=== PATIENT | female | born 1960 | race Caucasian/White ===

== ENCOUNTER 2019-04-12 15:09 | Observation (INO) ==
--- NOTE | 2019-04-12 15:30 | Emergency Department Note ---
Disposition Clinical Impression: Chest pain Qualifiers: Chest pain type: unspecified Qualified Code(s): R07.9 - Chest pain, unspecified Abdominal pain Qualifiers: Abdominal location: generalized Qualified Code(s): R10.84 - Generalized abdominal pain Disposition: Admitted As Inpatient Condition: Good Time of Disposition: 17:00 General Adult HPI - General Chief complaint: ED Chest Pain Stated complaint: Chest / ABD Pain Time Seen by Provider: 04/12/19 15:30 Source: patient Mode of arrival: ambulatory Limitations: no limitations Nursing Notes Reviewed: Yes Vital Signs Reviewed: Yes - History of Present Illness HPI Narrative: Patient is a 62-year-old female with a past medical history of urolithiasis and hysterectomy presents to the ED for evaluation of chest and abdominal pain. Patient states her chest pain began approximately 2 months ago and started on initially as a substernal sharp stabbing pain with cold fluids and is over time progressed into a constant diffuse chest pain that she describes as sharp and stabbing and constant with no alleviating or relieving factors. She denies any associated fevers, nausea, dyspnea, or urinary symptoms. States she has had loose stools but no blood present. She states she had a urine performed by her PCP that did show "blood" that she was started on a course of Bactrim antibiotic which she finished yesterday completed a seven-day course. States that her family doctor has been evaluating her for her chest pain in the next at this referral to a records analysis manager to be evaluated for fibromyalgia. She has had no recent travels, not on control, no lower extremity pain or swelling. When asked about blood clots is patient states that she has had a blood clot in her lungs however her daughter states that she actually had a pleural effusion which may have been blood that she has never been on anticoagulation. Pain Scale: 5 - Related Data Home Medications Medication Instructions Recorded Confirmed Cyanocobalamin (B-12) [Vitamin B12] 1,000 mcg IM TH 04/13/19 04/14/19 Ergocalciferol (VITAMIN D2) 50,000 unit PO TH 04/13/19 04/14/19 [Vitamin D2] Levothyroxine [Synthroid] 100 mcg PO 0630 04/13/19 04/14/19 Tramadol HCl [Ultram] 50 mg PO Q6H PRN 04/13/19 04/14/19 Pantoprazole Sodium 40 mg PO DAILY 04/14/19 04/14/19 Previous Rx's Medication Instructions Recorded Nitrofurantoin (BID) [Macrobid] 100 mg PO BIDWM #10 capsule 04/14/19 Vancomycin Oral Soln [Firvanq] 125 mg PO QID #100 ml 04/14/19 Allergies Allergy/AdvReac Type Severity Reaction Status Date / Time codeine AdvReac Nausea Verified 04/14/19 12:19 Past Medical History - Past Medical History Attestation: Yes The following information was validated with the patient. Medical history: Reports: kidney stones Surgical history: Reports: cholecystectomy, hysterectomy, ureteral stent Psychiatric history: Reports: no psych history - Social History Smoking Status: Never smoker Smokeless Tobacco Status: No Alcohol use: Reports: none Drug use: Reports: none Physical Exam CONSTITUTIONAL: Well-appearing; well-nourished; A&O X 3, in no apparent distress HEAD: Normocephalic; atraumatic EYES: PERRL, no scleral icterus NOSE: The nose is normal in appearance without rhinorrhea NECK: No JVD or distended neck veins RESP: Normal chest excursion with respiration; breath sounds clear and equal bilaterally; no wheezes, rhonchi, or rales CARD: Regular rhythm, without murmurs, rub or gallop ABD: Non-distended; non-tender, soft, without rigidity, rebound or guarding,no pulsatile mass CHEST: No pain with palpation SKIN: Normal for age and race; warm and dry without diaphoresis ; no apparent lesions EXTREMITIES: Pulses are 2 plus and equal times 4 extremities, no peripheral edema or calf muscle pain Course Course Narrative: Patient's heart score at this time is 2. She will undergo evaluation for chest pain with EKG as well as troponin, she also undergo evaluation of her abdominal pain with a CAT scan as well as labs evaluating her liver function and pancreas. I low suspicion that this is ACS chest pain given has been going on for over 2 months given the characteristics present. I am unable to use PERC to r/o PE/DVT due to patient tachycardia on arrival. She will undergo evaluation with d-dimer. Vital Signs Temperature 98.8 F 04/12/19 15:16 Pulse Rate 102 04/12/19 15:16 Respiratory Rate 18 04/12/19 15:16 Blood Pressure 140/77 04/12/19 15:16 O2 Sat by Pulse Oximetry 95 04/12/19 15:16 Temperature 98.3 F 04/14/19 15:04 Pulse Rate 77 04/14/19 15:04 Respiratory Rate 16 04/14/19 15:04 Blood Pressure 100/66 04/14/19 15:04 O2 Sat by Pulse Oximetry 94 04/14/19 15:04 Oxygen Delivery Oxygen Delivery Room Air Medical Decision Making - Medical Records Medical records reviewed: Yes I reviewed the patient's medical records. - Lab Data Lab results reviewed: Yes I reviewed the patient's lab results. Result diagrams: 04/14/19 07:26 04/14/19 07:26 Lab Results 04/12/19 04/12/19 04/12/19 Range/Units 16:11 16:11 16:11 WBC 7.9 (4.3-11.1) K/mcL RBC 4.67 (3.82-4.97) M/mcL Hgb 14.5 (11.5-15.4) g/dL Hct 42.6 (35.3-44.9) % MCV 91.2 (83.0-100.0) fL MCH 31.0 (28.0-33.3) pg MCHC 34.0 (31.6-35.5) g/dL RDW 12.9 (11.5-14.5) % Plt Count 222 (140-400) K/mcL MPV 8.7 L (9.4-12.4) fL Immature Gran % 0.4 (0-4) % Seg Neutrophils % 73.9 % Lymphocytes % 14.9 % Monocytes % 9.9 % Eosinophils % 0.6 % Basophils % 0.3 % Neutrophils # 5.9 (1.6-8.9) K/mcL Lymphocytes # 1.2 (0.6-4.6) K/mcL Monocytes # 0.8 (0.0-1.3) K/mcL Eosinophils # 0.1 (0.0-0.6) K/mcL Basophils # 0.0 (0.0-0.2) K/mcL PT 12.7 H (9.4-12.1) Seconds INR 1.1 D-Dimer 364 (0-500) ng/mLFEU Sodium 136 (136-145) mEq/L Potassium 3.7 (3.5-5.1) mEq/L Chloride 102 (98-107) mEq/L Carbon Dioxide 26 (23-29) mEq/L BUN 13 (6-20) mg/dL Creatinine 0.89 (0.60-1.20) mg/dL Est GFR ( Amer) > 60 (> 60) Est GFR (Non-Af Amer) > 60 (> 60) BUN/Creatinine Ratio 15 (6-26) Glucose 101 (70-105) mg/dL Calculated Osmolality 282 (280-300) Calcium 9.5 (8.6-10.3) mg/dL Magnesium (1.6-2.6) mg/dL Total Bilirubin (0.3-1.0) mg/dL Direct Bilirubin (0.0-0.2) mg/dL Indirect Bilirubin (0.0-1.2) mg/dL AST (13-39) Units/L ALT (7-52) Units/L Alkaline Phosphatase (34-104) Units/L Troponin I < 0.03 (< 0.04) ng/mL Serum Total Protein (6.4-8.9) g/dL Albumin (3.5-5.7) g/dL Globulin (2.4-3.5) g/dL Albumin/Globulin Ratio (1.1-2.2) Lipase 16 (11-82) Units/L 04/12/19 Range/Units 16:11 WBC (4.3-11.1) K/mcL RBC (3.82-4.97) M/mcL Hgb (11.5-15.4) g/dL Hct (35.3-44.9) % MCV (83.0-100.0) fL MCH (28.0-33.3) pg MCHC (31.6-35.5) g/dL RDW (11.5-14.5) % Plt Count (140-400) K/mcL MPV (9.4-12.4) fL Immature Gran % (0-4) % Seg Neutrophils % % Lymphocytes % % Monocytes % % Eosinophils % % Basophils % % Neutrophils # (1.6-8.9) K/mcL Lymphocytes # (0.6-4.6) K/mcL Monocytes # (0.0-1.3) K/mcL Eosinophils # (0.0-0.6) K/mcL Basophils # (0.0-0.2) K/mcL PT (9.4-12.1) Seconds INR D-Dimer (0-500) ng/mLFEU Sodium (136-145) mEq/L Potassium (3.5-5.1) mEq/L Chloride (98-107) mEq/L Carbon Dioxide (23-29) mEq/L BUN (6-20) mg/dL Creatinine (0.60-1.20) mg/dL Est GFR ( Amer) (> 60) Est GFR (Non-Af Amer) (> 60) BUN/Creatinine Ratio (6-26) Glucose (70-105) mg/dL Calculated Osmolality (280-300) Calcium (8.6-10.3) mg/dL Magnesium 1.8 (1.6-2.6) mg/dL Total Bilirubin 0.9 (0.3-1.0) mg/dL Direct Bilirubin 0.1 (0.0-0.2) mg/dL Indirect Bilirubin 0.8 (0.0-1.2) mg/dL AST 11 L (13-39) Units/L ALT 11 (7-52) Units/L Alkaline Phosphatase 58 (34-104) Units/L Troponin I (< 0.04) ng/mL Serum Total Protein 7.7 (6.4-8.9) g/dL Albumin 4.3 (3.5-5.7) g/dL Globulin 3.4 (2.4-3.5) g/dL Albumin/Globulin Ratio 1.3 (1.1-2.2) Lipase (11-82) Units/L - Radiology Data Radiology results reviewed: Yes I reviewed the patient's radiology results. S.B.A.R. - S.B.A.R. Situation: Demographics, MOA Background: Presenting Complaint, Relevant PMH, Meds, & Allergies Assessment: Vital Signs, Course and respsone to treatment, Exam Concerns, Patient/Family Expectation, Pertinant Lab Results, Outstanding Labs Recommendation: Barrier(s) to disposition, Recommendation based on pending studies, treatments, or consults S.B.A.R. Report Given to: Anabella
--- NOTE | 2019-04-12 16:26 | Emergency Department Note ---
Disposition Clinical Impression: Abdominal pain Chest pain Qualifiers: Chest pain type: unspecified Qualified Code(s): R07.9 - Chest pain, unspecified Disposition: Still a Patient Condition: Good Referrals: Yanet Vazquez CNP [Primary Care Provider] - Forms: ED Satisfaction Letter Time of Disposition: 17:00 General Adult HPI - General Chief complaint: ED Chest Pain Stated complaint: Chest / ABD Pain Time Seen by Provider: 04/12/19 15:30 Source: patient Mode of arrival: ambulatory Limitations: no limitations - History of Present Illness Pain Scale: 5 - Related Data Home Medications Medication Instructions Recorded Confirmed Naproxen Sodium [Aleve] 220 - 440 mg PO AD PRN 12/28/15 12/28/15 Previous Rx's Medication Instructions Recorded HYDROcodone/Acet 5/325 mg [[place] 2 tab PO Q6HR PRN #25 tablet 12/29/15 5-325 mg] Oxybutynin [Ditropan] 5 mg PO TID PRN #30 tablet 12/29/15 Allergies Allergy/AdvReac Type Severity Reaction Status Date / Time codeine AdvReac Nausea Verified 04/12/19 15:17 Past Medical History - Past Medical History Medical history: Reports: kidney stones Surgical history: Reports: cholecystectomy, hysterectomy, ureteral stent Psychiatric history: Reports: no psych history - Social History Smoking Status: Never smoker Smokeless Tobacco Status: No Alcohol use: Reports: none Drug use: Reports: none Physical Exam - General Limitations: no limitations Course Vital Signs Temperature 98.8 F 04/12/19 15:16 Pulse Rate 102 04/12/19 15:16 Respiratory Rate 18 04/12/19 15:16 Blood Pressure 140/77 04/12/19 15:16 O2 Sat by Pulse Oximetry 95 04/12/19 15:16 Temperature 98.8 F 04/12/19 15:16 Pulse Rate 102 04/12/19 15:16 Respiratory Rate 18 04/12/19 15:16 Blood Pressure 140/77 04/12/19 15:16 O2 Sat by Pulse Oximetry 95 04/12/19 15:16 Oxygen Delivery Oxygen Delivery Room Air Attestation Statement - Attestation Attestation: I examined this patient and my medical decision-making was reviewed with the Resident Physician. I agree with the documented findings, disposition and nova tment plan as described except to the extent set forth below. Daily chest pain and abdominal pain for approximately 2 months. Has failed several therapeutic trials as an outpatient with her primary care provider. Presents to the emergency Department frustrated and hoping for diagnosis. There is a pleuritic component to her pain. She is over 16 is tachycardic. Clinical suspicion for pulmonary embolism is low, d-dimer ordered. She is low risk by well's criteria. HEART score isH0 E0 A1 R1 TP = 2. Anticipate discharge if diagnostic workup is negative. Patient checked out to Dr. Kyle at change of shift.
[2019-04-12 16:32] LABS: Basophils % 0.3 %; Eosinophils # 0.1 K/mcL (0.0-0.6); Eosinophils % 0.6 %; Hematocrit 42.6 % (35.3-44.9); Hemoglobin 14.5 g/dL (11.5-15.4); Immature Granulocytes % 0.4 % (0-4); Lymphocytes # 1.2 K/mcL (0.6-4.6); Lymphocytes % 14.9 %; Mean Corpuscular Volume 91.2 fL (83.0-100.0); Mean Platelet Volume 8.7 fL (9.4-12.4); Monocytes # 0.8 K/mcL (0.0-1.3); Monocytes % 9.9 %; Neutrophils # 5.9 K/mcL (1.6-8.9); Platelet Count 222 K/mcL (140-400); Red Blood Count 4.67 M/mcL (3.82-4.97); Red Cell Distribution Width 12.9 % (11.5-14.5); Segmented Neutrophils % 73.9 %; White Blood Count 7.9 K/mcL (4.3-11.1)
--- NOTE | 2019-04-12 16:34 | Emergency Department Note ---
Disposition Clinical Impression: Chest pain Qualifiers: Chest pain type: unspecified Qualified Code(s): R07.9 - Chest pain, unspecified Abdominal pain Qualifiers: Abdominal location: generalized Qualified Code(s): R10.84 - Generalized abdominal pain Disposition: Admitted As Inpatient Condition: Good Time of Disposition: 22:01 General Adult HPI - General Chief complaint: ED Chest Pain Stated complaint: Chest / ABD Pain Time Seen by Provider: 04/12/19 15:30 Source: patient Mode of arrival: ambulatory Limitations: no limitations - History of Present Illness Pain Scale: 5 - Related Data Home Medications Medication Instructions Recorded Confirmed Naproxen Sodium [Aleve] 220 - 440 mg PO AD PRN 12/28/15 12/28/15 Previous Rx's Medication Instructions Recorded HYDROcodone/Acet 5/325 mg [[place] 2 tab PO Q6HR PRN #25 tablet 12/29/15 5-325 mg] Oxybutynin [Ditropan] 5 mg PO TID PRN #30 tablet 12/29/15 Allergies Allergy/AdvReac Type Severity Reaction Status Date / Time codeine AdvReac Nausea Verified 04/12/19 15:17 Past Medical History - Past Medical History Medical history: Reports: kidney stones Surgical history: Reports: cholecystectomy, hysterectomy, ureteral stent Psychiatric history: Reports: no psych history - Social History Smoking Status: Never smoker Smokeless Tobacco Status: No Alcohol use: Reports: none Drug use: Reports: none Physical Exam - General Limitations: no limitations Course Vital Signs Temperature 98.8 F 04/12/19 15:16 Pulse Rate 102 04/12/19 15:16 Respiratory Rate 18 04/12/19 15:16 Blood Pressure 140/77 04/12/19 15:16 O2 Sat by Pulse Oximetry 95 04/12/19 15:16 Temperature 99.8 F H 04/12/19 21:37 Pulse Rate 81 04/12/19 21:37 Respiratory Rate 16 04/12/19 21:37 Blood Pressure 120/68 04/12/19 21:37 O2 Sat by Pulse Oximetry 96 04/12/19 21:37 Oxygen Delivery Oxygen Delivery Room Air Medical Decision Making - Lab Data Result diagrams: 04/12/19 16:11 04/12/19 16:11 Lab Results 04/12/19 04/12/19 04/12/19 Range/Units 16:11 16:11 16:11 WBC 7.9 (4.3-11.1) K/mcL RBC 4.67 (3.82-4.97) M/mcL Hgb 14.5 (11.5-15.4) g/dL Hct 42.6 (35.3-44.9) % MCV 91.2 (83.0-100.0) fL MCH 31.0 (28.0-33.3) pg MCHC 34.0 (31.6-35.5) g/dL RDW 12.9 (11.5-14.5) % Plt Count 222 (140-400) K/mcL MPV 8.7 L (9.4-12.4) fL Immature Gran % 0.4 (0-4) % Seg Neutrophils % 73.9 % Lymphocytes % 14.9 % Monocytes % 9.9 % Eosinophils % 0.6 % Basophils % 0.3 % Neutrophils # 5.9 (1.6-8.9) K/mcL Lymphocytes # 1.2 (0.6-4.6) K/mcL Monocytes # 0.8 (0.0-1.3) K/mcL Eosinophils # 0.1 (0.0-0.6) K/mcL Basophils # 0.0 (0.0-0.2) K/mcL PT 12.7 H (9.4-12.1) Seconds INR 1.1 D-Dimer 364 (0-500) ng/mLFEU Sodium 136 (136-145) mEq/L Potassium 3.7 (3.5-5.1) mEq/L Chloride 102 (98-107) mEq/L Carbon Dioxide 26 (23-29) mEq/L BUN 13 (6-20) mg/dL Creatinine 0.89 (0.60-1.20) mg/dL Est GFR ( Amer) > 60 (> 60) Est GFR (Non-Af Amer) > 60 (> 60) BUN/Creatinine Ratio 15 (6-26) Glucose 101 (70-105) mg/dL Calculated Osmolality 282 (280-300) Calcium 9.5 (8.6-10.3) mg/dL Magnesium (1.6-2.6) mg/dL Total Bilirubin (0.3-1.0) mg/dL Direct Bilirubin (0.0-0.2) mg/dL Indirect Bilirubin (0.0-1.2) mg/dL AST (13-39) Units/L ALT (7-52) Units/L Alkaline Phosphatase (34-104) Units/L Troponin I < 0.03 (< 0.04) ng/mL Serum Total Protein (6.4-8.9) g/dL Albumin (3.5-5.7) g/dL Globulin (2.4-3.5) g/dL Albumin/Globulin Ratio (1.1-2.2) Lipase 16 (11-82) Units/L // Range/Units 16:11 WBC (4.3-11.1) K/mcL RBC (3.82-4.97) M/mcL Hgb (11.5-15.4) g/dL Hct (35.3-44.9) % MCV (83.0-100.0) fL MCH (28.0-33.3) pg MCHC (31.6-35.5) g/dL RDW (11.5-14.5) % Plt Count (140-400) K/mcL MPV (9.4-12.4) fL Immature Gran % (0-4) % Seg Neutrophils % % Lymphocytes % % Monocytes % % Eosinophils % % Basophils % % Neutrophils # (1.6-8.9) K/mcL Lymphocytes # (0.6-4.6) K/mcL Monocytes # (0.0-1.3) K/mcL Eosinophils # (0.0-0.6) K/mcL Basophils # (0.0-0.2) K/mcL PT (9.4-12.1) Seconds INR D-Dimer (0-500) ng/mLFEU Sodium (136-145) mEq/L Potassium (3.5-5.1) mEq/L Chloride (98-107) mEq/L Carbon Dioxide (23-29) mEq/L BUN (6-20) mg/dL Creatinine (0.60-1.20) mg/dL Est GFR ( Amer) (> 60) Est GFR (Non-Af Amer) (> 60) BUN/Creatinine Ratio (6-26) Glucose (70-105) mg/dL Calculated Osmolality (280-300) Calcium (8.6-10.3) mg/dL Magnesium 1.8 (1.6-2.6) mg/dL Total Bilirubin 0.9 (0.3-1.0) mg/dL Direct Bilirubin 0.1 (0.0-0.2) mg/dL Indirect Bilirubin 0.8 (0.0-1.2) mg/dL AST 11 L (13-39) Units/L ALT 11 (7-52) Units/L Alkaline Phosphatase 58 (34-104) Units/L Troponin I (< 0.04) ng/mL Serum Total Protein 7.7 (6.4-8.9) g/dL Albumin 4.3 (3.5-5.7) g/dL Globulin 3.4 (2.4-3.5) g/dL Albumin/Globulin Ratio 1.3 (1.1-2.2) Lipase (11-82) Units/L Attestation Statement - Attestation Attestation: I saw and evaluated the patient and and reviewed the resident's note/PA note/CHECK WEIGHER note, and I agree with the findings and plan. I personally supervised and was present for the xiao/critical portions of any procedures. The medical decision- making was reviewed with the NETWORK MANAGEMENT SPECIALIST/PA/Advanced Practice Nurse/Resident Physician. I agree with the documented findings, disposition and treatment plan as described except to the extent set forth below. I did see the patient at bedside with Dr. akers and I did speak with her and she has had constant right-sided chest pain for the last 6 weeks without radiation, no associated diaphoresis or dyspnea. Was treated for reflux as well as for urinary tract infection without adequate improvement. She does not have history of cardiac disease. There is no pleuritic aspect. No pain or swelling of lower extremities. She does not have radiation and specifically no radiation to the back. Test results are pending. I did review the patient's EKG and there was one done at 3:13 PM and I did compare this to an EKG from 2013 and it does appear that there is some new inferior lateral ST depression so the patient will be admitted for further evaluation of possible ischemia. Test results including troponin testing are pending. I do not suspect pulmonary embolism. 1634 I did speak with the hospitalist who accepts the patient for admission. She is actually over getting a abdominal pelvic CAT scan which was ordered by the previous team prior to and off so we will make sure that is okay but on my assessment the primary location of pain was right chest and with the new ischemic EKG changes this should be a cardiac evaluation. I will follow the results of the CT 1741
[2019-04-12] MEDS ORDERED: Aspirin 325 MG TABLET PO ONE (16:35)
[2019-04-12 16:57] LABS: Albumin 4.3 g/dL (3.5-5.7); Albumin/Globulin Ratio 1.3 (1.1-2.2); Bilirubin,Direct 0.1 mg/dL (0.0-0.2); Bilirubin,Indirect 0.8 mg/dL (0.0-1.2); Bilirubin,Total 0.9 mg/dL (0.3-1.0); Globulin 3.4 g/dL (2.4-3.5); Total Protein 7.7 g/dL (6.4-8.9)
[2019-04-12 16:58] LABS: BUN/Creatinine Ratio 15 (6-26); Blood Urea Nitrogen 13 mg/dL (6-20); Calcium 9.5 mg/dL (8.6-10.3); Carbon Dioxide 26 mEq/L (23-29); Chloride 102 mEq/L (98-107); Glucose 101 mg/dL (70-105); Lipase 16 Units/L (11-82); Osmolality,Calculated 282 (280-300); Potassium 3.7 mEq/L (3.5-5.1); Sodium 136 mEq/L (136-145); Troponin I < 0.03 ng/mL (< 0.04); eGFR For African Americans > 60 (> 60); eGFR For Non-African Americans > 60 (> 60)
--- NOTE | 2019-04-12 18:43 | Internal Med History&Physical ---
Date of Encounter: 04/12/19 Time of Encounter: 18:40 Internal Medicine - H&P: HPI History of present illness: Patient is a 62-year-old female with a past medical history of hiatal hernia, urolithiasis presented to the ED for evaluation of chest and abdominal pain. Symptoms started 2 months ago and started on initially as a substernal sharp stabbing pain constant with no alleviating or relieving factors. No fevers, nausea, dyspnea, or urinary symptoms. Has loose stools but this is chronic for her. She states she had a urine performed by her PCP that did show blood, and she took 7 day course of Bactrim and she says this did not help at all. Her family doctor has been doing on-going workup for chest pain in the next at this referral to a development director to be evaluated for fibromyalgia. Not on OCP, no tobacco use, no recent travels, no early deaths in family from cardiac causes. In the ED, an EKG showed ST depressions not present on an EKG 6 years ago, troponin negative, D-Dimer negative, CBC/BMP unremarkable. CT abdomen/pelvis unremarkable. Chest x-ray unremarkable. Family history reviewed and non-contributory. Past Med Surg Social Fam HX - Past Medical History Medical history: kidney stones Psychiatric history: no psych history - Past Surgical History Surgical History: cholecystectomy, hysterectomy, ureteral stent - Social History Smoking Status: Never smoker Smokeless Tobacco Status: No Alcohol use: none Drug use: none - Family History Mother Living Status: Hx Family Cancer: Yes Internal Medicine - H&P: Meds Naproxen Sodium [Aleve] 220 - 440 mg PO AD PRN 12/28/15 [History] HYDROcodone/Acet 5/325 mg [[place] 5-325 mg] 2 tab PO Q6HR PRN #25 tablet 12/29/15 [Rx] Oxybutynin [Ditropan] 5 mg PO TID PRN #30 tablet 12/29/15 [Rx] Allergy/AdvReac Type Severity Reaction Status Date / Time codeine AdvReac Nausea Verified 04/12/19 15:17 All Systems PM: A 10-system review of systems was performed and is negative for pertinent findings except as documented above in the HPI. - Constitutional Constitutional: chills, fatigue, no fever(s), no falls - EENT Eyes: no blurry vision Ears: no decreased hearing Nose, mouth and throat: no hoarseness - Breasts Breasts: no mass - Cardiovascular Cardiovascular ROS IM: chest pain, no claudication, no dyspnea on exertion, no edema, no lightheadedness - Respiratory Respiratory: no cough, no dyspnea, no dyspnea on exertion, no wheezing - Gastrointestinal Gastrointestinal: abdominal pain, diarrhea - Genitourinary Genitourinary: no genital lesions, no urinary frequency - Musculoskeletal Musculoskeletal ROS IM: myalgias, no joint swelling, no neck pain, no stiffness - Neurological Neurological ROS: no abnormal gait, no headache(s), no loss of vision, no numbness, no tremor(s) - Endocrine Endocrine IM: no cold intolerance, no deeping of the voice - Constitutional Vitals: Temp Pulse Resp BP Pulse Ox 98.8 F 102 18 140/77 95 04/12/19 17:05 04/12/19 17:05 04/12/19 17:05 04/12/19 17:05 04/12/19 17:05 General appearance: Present: A&O X 3, morbidly obese Exam: . - Head Head exam: Present: atraumatic, normocephalic - Eye Eye exam: Present: PERRL, conjuntiva pink, sclera anicteric Pupils: Present: PERRL - Neck Neck exam general surgery: Present: supple, trachea midline. Absent: ly mphadenopathy - Respiratory Respiratory exam: Present: CTAB. Absent: accessory muscle use, rales, rhonchi, wheezes - Cardiovascular Cardiovascular exam: Present: RRR, +S1, +S2. Absent: diastolic murmur, gallop, rubs, systolic murmur - GI/Abdominal GI/Abdominal exam: Present: normal bowel sounds, soft, no peritoneal signs. Absent: distended, tenderness - Extremities Exam Extremities exam: Present: warm, radial pulses palpable and symmetrical. Absent: calf tenderness, cyanotic, pedal edema - Neurological Exam Neurological exam: Present: CN II-XII intact, oriented X3, no focal deficits. Absent: pronater drift, facial droop, speech deficit - Skin Skin exam: Present: dry, intact Internal Med - H&P Results - Labs CBC & Chem 7: 04/12/19 16:11 04/12/19 16:11 Labs: Short CBC 04/12/19 Range/Units 16:11 WBC 7.9 (4.3-11.1) K/mcL Hgb 14.5 (11.5-15.4) g/dL Hct 42.6 (35.3-44.9) % Plt Count 222 (140-400) K/mcL Neutrophils # 5.9 (1.6-8.9) K/mcL BMP 04/12/19 16:11 Sodium 136 Potassium 3.7 Chloride 102 Carbon Dioxide 26 BUN 13 Creatinine 0.89 Glucose 101 Calcium 9.5 Cardiac Enzymes 04/12/19 Range/Units 16:11 Troponin I < 0.03 (< 0.04) ng/mL Liver Function 04/12/19 Range/Units 16:11 Total Bilirubin 0.9 (0.3-1.0) mg/dL Direct Bilirubin 0.1 (0.0-0.2) mg/dL AST 11 L (13-39) Units/L ALT 11 (7-52) Units/L Alkaline Phosphatase 58 (34-104) Units/L Albumin 4.3 (3.5-5.7) g/dL - Impressions ITS Impressions Chest X-Ray 04/12/19 15:43 IMPRESSION: No acute cardiopulmonary disease. D/ / Agustina Clay MD / Agustina Clay MD Interpreting Provider: Agustina Clay MD Abdomen/Pelvis CT 04/12/19 16:06 IMPRESSION: 1. Hepatic steatosis without hepatomegaly or focal liver lesion. 2. A 2 mm nonobstructing right renal lower pole calculus. 3. No acute infective or inflammatory process. No bowel obstruction. D/ / Leno Chinchilla MD / Leno Chinchilla MD Interpreting Provider: Leno Chinchilla MD - Assessment and Plan (1) Chest pain Current Visit: Yes Status: Acute Assessment and plan: Appears to be musculoskeletal in nature, HEART score 2, D-dimer negative, suggestive against cardiac and PE. TTP on exam and pain is easily reproducible. But there is some ST changes on EKG and should have cardiac workup. - Cycle cardiac enzymes - ESR, CRP, CK - Echocardiogram - Stress test - Nitro prn. - If pain worsens, will consider further imaging such as CT chest. Qualifiers: Chest pain type: unspecified Qualified Code(s): R07.9 - Chest pain, unspecified (2) Abdominal pain Current Visit: Yes Status: Acute Assessment and plan: Likely musculoskelatal, CT A/P negative, lipase wnl, CBC/BMP unremarkable. Pain reproducable with palpation of thoracic wall. Does have a history of nephrolithiasis, will obtain UA. Qualifiers: Abdominal location: generalized Qualified Code(s): R10.84 - Generalized abdominal pain (3) Hiatal hernia Current Visit: Yes Status: Acute (4) DVT prophylaxis Current Visit: Yes Status: Acute Assessment and plan: Heparin SQ - Time Spent With Patient Total time spent is greater than 50% in coordination of care (as documented) at patient's floor/unit and/or counseling patient:
[2019-04-12] MEDS ORDERED: Ondansetron 4 MG/2 ML VIAL IVP PRN (18:53)
[2019-04-12] MEDS ORDERED: Naloxone 0.4 MG/ML INJ IVP PRN (18:53)
[2019-04-12] MEDS ORDERED: Nitroglycerin 0.4 MG TAB.SUBL SL PRN (18:53)
[2019-04-12 19:13] LABS: INR 1.1; Prothrombin Time 12.7 Seconds (9.4-12.1)
[2019-04-12 19:18] LABS: Magnesium 1.8 mg/dL (1.6-2.6)
[2019-04-12] MEDS: OXYCODONE Oral CONC 10 MG/0.5 ML ORAL.SYG SL PRN (21:57)
[2019-04-12 22:46] LABS: Bilirubin,Urine Small (Negative); Blood,Urine Moderate (Negative); Clarity,Urine Cloudy (Clear); Color,Urine Yellow (Yellow); Glucose,Urine (UA) Normal (Normal); Ketones,Urine 15 mg/dL (Negative); Leukocyte Esterase,Urine Moderate (Negative); Nitrite,Urine Negative (Negative); PH,Urine 5.5 pH Units (5.0-8.0); Protein,Urine 30 mg/dL (Neg-Trace); Specific Gravity,Urine 1.024 (1.010-1.025); Urobilinogen,Urine Normal (Normal)
[2019-04-12 22:49] LABS: Bacteria,Urine Moderate per hpf (None-Few); Hyaline Casts,Urine Few per lpf (None-Few); Squamous Epithelial Cell,Urine Many per lpf (None-Few); WBC,Urine 50-100 per hpf (0-3)
[2019-04-13 02:29] LABS: Chol/HDL Ratio 6.5 (0-4.9)
[2019-04-13] MEDS: *HR* Heparin 5,000 UNIT/ML VIAL SQ SCH ×2 (06:06→17:44)
[2019-04-13] MEDS ORDERED: Regadenoson 0.4 MG/5 ML SYRINGE IVP ONE (06:28)
--- NOTE | 2019-04-13 08:48 | Internal Med Progress Note ---
<Dee Dee Griffin - Last Filed: 04/13/19 17:35> Hospitalist Progress Note - Encounter Date of Encounter: 04/13/19 Time of Encounter: 08:48 - Subjective Interval History: This is a 62-year-old female with past medical history significant for hiatal hernia, urolithiasis who initially presented to the ED complaining of chest and abdominal pain. Patient was seen and examined at bedside this morning. was accompanying her at bedside. Patient had just returned from a nuclear stress test this morning. States that her pain has been improving, but still persists. She describes pain that spreads across her chest and down to her abdomen. The pain has persisted in her chest for about 6 weeks. She does note that she had a mammogram which was normal. She has tried taking Tylenol and ibuprofen, and even Toradol for pain control, but pain has persisted. She also notes abdominal pain that is persisted for the past 2 weeks. She notes that she was diagnosed with UTI, and was treated recently. Otherwise, she denies any headaches, blurry vision, palpitations, difficulty breathing, wheezing, nausea, vomiting. - Exam Vitals: Temp Pulse Resp BP Pulse Ox 100.9 F H 90 16 128/68 92 04/13/19 03:31 04/13/19 03:31 04/13/19 03:31 04/13/19 03:31 04/13/19 03:31 Exam: GEN: This is a pleasant 59-year-old female resting in bed side. She is in mild distress secondary to pain. She is accompanied by her . Vitals stable. No acute distress. AAOx3 HEENT: Atraumatic, Normocephalic, PERRLA, EOMI NECK: Supple, no lymphadenopathy, no JVD CARDIAC: RRR, s1 and s2 present, no murmurs, rubs, gallops; mild tenderness to palpation over anterior chest PULM: CTAB, not in respiratory distress, no wheezes, rales, crackles, rhonchi ABD: Mild tenderness to palpation diffusely across abdomen. Soft, non- distended, no guarding or rebound tenderness. Bowel sounds present. Negative Ren's, negative Rovsing's EXT: No peripheral edema. No calf tenderness, cyanosis, clubbing NEURO: CN 2-12 grossly intact. No focal neurologic deficits. Follows commands PSYCH: Appropriate mood and affect - Assessment and Plan (1) Chest pain Current Visit: Yes Status: Acute Assessment and Plan: This is a 62-year-old female with past medical history significant for hiatal hernia, urolithiasis who initially presented to the ED complaining of chest and abdominal pain. - chest pain last past 2 months. Abdominal pain has lasted for the past 2 weeks. - Chest pain is reproducible to palpation - Initial workup was benign. CBC and CMP were within normal limits - Troponins were negative 3 - D-dimer was negative - EKG in the ED did show ST depressions were not present on EKG 6 years ago. - Chest x-ray (04/12/19): No acute cardiopulmonary disease - CT abdomen and pelvis (04/12/19): Hepatic steatosis without hepatomegaly or focal liver lesion. 2 mm nonobstructing right renal lower pole calculus. No acute infective or inflammatory process. No bowel obstruction. - Echocardiogram (04/13/19): LVEF = 65%. Concentric left ventricular hypertrophy. Mild left ventricular diastolic dysfunction. Normal right ventricle. Moderate tricuspid regurg. No pulmonary hypertension. PLAN: - Patient presents with chest pain that is persisted over the course of the past 6-8 weeks. Workup thus far has been negative. Chest pain is likely musculoskeletal in nature. Pain is reproducible to palpation on exam - Follow up with 2 day stress test tomorrow. Follow up results. - Pain control as needed. Continue to monitor for worsening pain - Patient may benefit from trial of NSAIDs for possible treatment of costochondritis; may consider with negative cardiac workup (2) Abdominal pain Current Visit: Yes Status: Acute Assessment and Plan: Patient additionally complains of generalized abdominal pain for the past 2 weeks - Physical exam did show mild diffuse abdominal tenderness to palpation, but without any signs of guarding, rebound, rigidity - CMP was essentially benign - Lipase was negative - CT abdomen and pelvis (04/12/19): Hepatic steatosis without hepatomegaly or focal liver lesion. 2 mm nonobstructing right renal lower pole calculus. No acute infective or inflammatory process. No bowel obstruction. - Patient did note that she had a UTI a few weeks ago and was treated with Bactrim for 7 days - UA was repeated and did show moderate blood, moderate leukocyte esterase, white blood cells and moderate urine bacteria PLAN: - We will treat UTI with Macrobid 100 mg twice a day - Monitor for worsening signs and symptoms - Monitor for leukocytosis or fevers (3) Urinary tract infection Current Visit: Yes Status: Acute Assessment and Plan: Patient notes she did have a UTI a few weeks ago and was treated with a seven- day course of Bactrim - UA was repeated and did show moderate blood, moderate leukocyte esterase, white blood cells and moderate urine bacteria PLAN: - We will treat UTI with Macrobid 100 mg twice a day for 5 days - Encourage adequate hydration (4) Hypothyroidism Current Visit: Yes Status: Acute Assessment and Plan: History of hypothyroidism PLAN: - Continue Synthroid (5) DVT prophylaxis Current Visit: Yes Status: Acute Assessment and Plan: PLAN: - Heparin SQ BID DVT Prophylaxis: Heparin subcutaneous twice a day - Time Spent with Patient Total time spent is greater than 50% in coordination of care (as documented) at patient's floor/unit and/or counseling patient: less than 15 minutes Plan of Care Discussed with: patient Internal Medicine: Result - Labs CBC & Chem 7: 04/12/19 16:11 04/12/19 16:11 Labs: Short CBC 04/12/19 Range/Units 16:11 WBC 7.9 (4.3-11.1) K/mcL Hgb 14.5 (11.5-15.4) g/dL Hct 42.6 (35.3-44.9) % Plt Count 222 (140-400) K/mcL Neutrophils # 5.9 (1.6-8.9) K/mcL BMP 04/12/19 16:11 Sodium 136 Potassium 3.7 Chloride 102 Carbon Dioxide 26 BUN 13 Creatinine 0.89 Glucose 101 Calcium 9.5 Cardiac Enzymes 04/12/19 04/12/19 Range/Units 16:11 22:03 Troponin I < 0.03 < 0.03 (< 0.04) ng/mL Liver Function 04/12/19 Range/Units 16:11 Total Bilirubin 0.9 (0.3-1.0) mg/dL Direct Bilirubin 0.1 (0.0-0.2) mg/dL AST 11 L (13-39) Units/L ALT 11 (7-52) Units/L Alkaline Phosphatase 58 (34-104) Units/L Albumin 4.3 (3.5-5.7) g/dL Urine 04/12/19 Range/Units 22:20 Urine Color Yellow (Yellow) Urine Clarity Cloudy A (Clear) Urine pH 5.5 (5.0-8.0) pH Units Ur Specific [place] 1.024 (1.010-1.025) Urine Protein 30 H (Neg-Trace) mg/dL Urine Glucose (UA) Normal (Normal) mg/dL - ABG Interpretation ABG results: PT/INR, D-dimer PT 12.7 Seconds (9.4-12.1) H 04/12/19 16:11 364 ng/mLFEU (0-500) 04/12/19 16:11 - Impressions Impressions Chest X-Ray 04/12/19 15:43 IMPRESSION: No acute cardiopulmonary disease. D/ / Agustina Clay MD / Agustina Clay MD Interpreting Provider: Agustina Clay MD Abdomen/Pelvis CT 04/12/19 16:06 IMPRESSION: 1. Hepatic steatosis without hepatomegaly or focal liver lesion. 2. A 2 mm nonobstructing right renal lower pole calculus. 3. No acute infective or inflammatory process. No bowel obstruction. D/ / Leno Chinchilla MD / Leno Chinchilla MD Interpreting Provider: Leno Chinchilla MD Consult Discharge Plan - Plan Referrals: Yanet Vazquez CNP [Primary Care Provider] - <Ruthie Dennison - Last Filed: 04/13/19 18:02> Hospitalist Progress Note - Encounter Date of Encounter: 04/13/19 - Exam Vitals: Temp Pulse Resp BP Pulse Ox 98.5 F 82 15 110/73 94 04/13/19 16:29 04/13/19 16:29 04/13/19 16:29 04/13/19 16:30 04/13/19 16:29 - Assessment and Plan (1) Chest pain Current Visit: Yes Status: Acute (2) Abdominal pain Current Visit: Yes Status: Acute (3) Hiatal hernia Current Visit: Yes Status: Acute (4) DVT prophylaxis Current Visit: Yes Status: Acute - Time Spent with Patient Total time spent is greater than 50% in coordination of care (as documented) at patient's floor/unit and/or counseling patient: Internal Medicine: Result - Labs CBC & Chem 7: 04/12/19 16:11 04/12/19 16:11 Labs: Cardiac Enzymes 04/12/19 Range/Units 22:03 Troponin I < 0.03 (< 0.04) ng/mL Urine 04/12/19 Range/Units 22:20 Urine Color Yellow (Yellow) Urine Clarity Cloudy A (Clear) Urine pH 5.5 (5.0-8.0) pH Units Ur Specific [place] 1.024 (1.010-1.025) Urine Protein 30 H (Neg-Trace) mg/dL Urine Glucose (UA) Normal (Normal) mg/dL - ABG Interpretation ABG results: PT/INR, D-dimer PT 12.7 Seconds (9.4-12.1) H 04/12/19 16:11 364 ng/mLFEU (0-500) 04/12/19 16:11 - Impressions Impressions Echocardiogram 04/13/19 18:53 Impressions: LVEF 65%. Mild concentric left ventricular hypertrophy. Mild left ventricular diastolic dysfunction. Normal right ventricular structure and function. Moderate tricuspid regurgitation. No evidence of pulmonary hypertension. Left Ventricular Wall Motion: Rest Echo Findings All wall segments showed normal motion. Findings: Study Quality * Technically adequate exam. ECG Findings * Normal sinus rhythm. Left Ventricle * LVEF 65%. * Mild concentric left ventricular hypertrophy. * Normal LV chamber size. * Mild left ventricular diastolic dysfunction. Right Ventricle * Normal right ventricular structure and function. Left Atrium * Normal left atrial size. Right Atrium * Normal right atrial size. Aortic Valve * Aortic valve not well visualized. * No aortic regurgitation. * No aortic stenosis. Mitral Valve * Normal mitral valve structure. * No mitral regurgitation. * No mitral stenosis. Tricuspid Valve * Moderate tricuspid regurgitation. * Normal tricuspid valve structure. * No tricuspid stenosis. * No evidence of pulmonary hypertension. Pulmonic Valve * Pulmonic valve not well visualized. Aorta * Normally sized aortic root. Pericardium * The pericardium appears normal. IVC * Normal IVC dimensions and inspiratory collapse. Pulmonary Artery * Pulmonary artery not well visualized. - Attending Attestation I examined this patient and my medical decision-making was reviewed with the Resident Physician. I agree with the documented findings, disposition and treatment plan as described except to the extent set forth below. <De eDee Griffin - Last Filed: 04/13/19 17:35> (1) Chest pain Qualifiers: Chest pain type: unspecified Qualified Code(s): R07.9 - Chest pain, unspecified (2) Abdominal pain Qualifiers: Abdominal location: generalized Qualified Code(s): R10.84 - Generalized abdominal pain (3) Urinary tract infection Qualifiers: Urinary tract infection type: acute cystitis Hematuria presence: with hematuria Qualified Code(s): N30.01 - Acute cystitis with hematuria (4) Hypothyroidism Qualifiers: Hypothyroidism type: unspecified Qualified Code(s): E03.9 - Hypothyroidism, unspecified <Ruthie Dennison - Last Filed: 04/13/19 18:02> (1) Chest pain Qualifiers: Chest pain type: unspecified Qualified Code(s): R07.9 - Chest pain, unspecified (2) Abdominal pain Qualifiers: Abdominal location: generalized Qualified Code(s): R10.84 - Generalized abdominal pain
[2019-04-13] MEDS: OXYCODONE Oral CONC 10 MG/0.5 ML ORAL.SYG SL PRN ×2 (11:03→17:46)
[2019-04-13] MEDS ORDERED: Acetaminophen 325 MG TABLET PO PRN (16:22)
[2019-04-13] MEDS: Nitrofurantoin (BID) 100 MG CAPSULE PO SCH (17:43)
[2019-04-13] MEDS: Acetaminophen 325 MG TABLET PO PRN (21:15)
[2019-04-14] MEDS: OXYCODONE Oral CONC 10 MG/0.5 ML ORAL.SYG SL PRN ×2 (00:18→08:35)
[2019-04-14] MEDS: *HR* Heparin 5,000 UNIT/ML VIAL SQ SCH (06:19)
--- NOTE | 2019-04-14 08:03 | Internal Med Progress Note ---
Hospitalist Progress Note - Encounter Date of Encounter: 04/14/19 Time of Encounter: 08:03 - Subjective Interval History: Patient was seen and examined at bedside this morning. She was eating breakfast after coming back from secondary stress test. Accompanied by her at bedside. She does note that she is feeling a little bit better this morning. Vitals are stable. Lab work looks good. She continues to have mild abdominal pain, and midsternal chest pain that is reproducible by palpation. She notes that pain control with Tylenol and oxycodone as needed has been adequate thus far. However she does note 6 weeks of similar pain. States that she did feel relief with tramadol initially. She is prescribed a PPI by her primary care doctor for suspected GERD, did not see any improvement. She had been taking NSAIDs, but notes that she was taking 1200 mg a night and her PCP recommended that she stop doing that. We will continue with pain management, continue with antibiotics for treatment of UTI for now, and await results of stress test. - Exam Vitals: Temp Pulse Resp BP Pulse Ox 98.2 F 72 16 104/69 95 04/14/19 06:33 04/14/19 06:33 04/14/19 06:33 04/14/19 06:33 04/14/19 06:33 Exam: GEN: This is a very pleasant 59-year-old female who is resting comfortably at bedside eating breakfast. She is accompanied by her . Vitals stable. No acute distress. AAOx3 HEENT: Atraumatic, Normocephalic, PERRLA, EOMI NECK: Supple, no lymphadenopathy, no JVD CARDIAC: RRR, s1 and s2 present, no murmurs, rubs, gallops; tenderness to palpation across the anterior chest. Reports more tenderness in the subxiphoid region. PULM: CTAB, not in respiratory distress, no wheezes, rales, crackles, rhonchi ABD: Mild tenderness to palpation diffusely across lower abdomen. Soft, non- distended, no guarding or rebound tenderness. Bowel sounds present EXT: No peripheral edema. No calf tenderness, cyanosis, clubbing NEURO: CN 2-12 grossly intact. No focal neurologic deficits. Follows commands PSYCH: Appropriate mood and affect - Assessment and Plan (1) Chest pain Current Visit: Yes Status: Acute Assessment and Plan: This is a 62-year-old female with past medical history significant for hiatal hernia, urolithiasis who initially presented to the ED complaining of chest and abdominal pain. - chest pain last past 2 months. Abdominal pain has lasted for the past 2 weeks. - Chest pain is reproducible to palpation - Initial workup was benign. CBC and CMP were within normal limits - Troponins were negative 3 - D-dimer was negative - EKG in the ED did show ST depressions were not present on EKG 6 years ago. - Chest x-ray (04/12/19): No acute cardiopulmonary disease - CT abdomen and pelvis (04/12/19): Hepatic steatosis without hepatomegaly or focal liver lesion. 2 mm nonobstructing right renal lower pole calculus. No acute infective or inflammatory process. No bowel obstruction. - Echocardiogram (04/13/19): LVEF = 65%. Concentric left ventricular hypertrophy. Mild left ventricular diastolic dysfunction. Normal right ventricle. Moderate tricuspid regurg. No pulmonary hypertension. - Stress test came back negative today. PLAN: - Patient presents with chest pain that is persisted over the course of the past 6-8 weeks. Workup thus far has been negative. Chest pain is likely musc uloskeletal in nature. Pain is reproducible to palpation on exam - Pain control as needed. Continue to monitor for worsening pain - Patient may benefit from trial of NSAIDs for possible treatment of costochondritis; may consider with negative cardiac workup (2) Abdominal pain Current Visit: Yes Status: Acute Assessment and Plan: Patient additionally complains of generalized abdominal pain for the past 2 weeks - Physical exam did show mild diffuse abdominal tenderness to palpation, but without any signs of guarding, rebound, rigidity - CMP was essentially benign - Lipase was negative - CT abdomen and pelvis (04/12/19): Hepatic steatosis without hepatomegaly or focal liver lesion. 2 mm nonobstructing right renal lower pole calculus. No acute infective or inflammatory process. No bowel obstruction. - Patient did note that she had a UTI a few weeks ago and was treated with Bactrim for 7 days - UA was repeated and did show moderate blood, moderate leukocyte esterase, white blood cells and moderate urine bacteria PLAN: - We will treat UTI with Macrobid 100 mg twice a day - Monitor for worsening signs and symptoms - Monitor for leukocytosis or fevers (3) Urinary tract infection Current Visit: Yes Status: Acute Assessment and Plan: Patient notes she did have a UTI a few weeks ago and was treated with a seven- day course of Bactrim - UA was repeated and did show moderate blood, moderate leukocyte esterase, white blood cells and moderate urine bacteria PLAN: - We will treat UTI with Macrobid 100 mg twice a day for 5 days - Encourage adequate hydration (4) Hypothyroidism Current Visit: Yes Status: Acute Assessment and Plan: History of hypothyroidism PLAN: - Continue Synthroid (5) DVT prophylaxis Current Visit: Yes Status: Acute Assessment and Plan: PLAN: - Heparin SQ BID DVT Prophylaxis: Heparin subcutaneous twice a day - Time Spent with Patient Total time spent is greater than 50% in coordination of care (as documented) at patient's floor/unit and/or counseling patient: 25 - 35 minutes Plan of Care Discussed with: patient Internal Medicine: Result - Labs CBC & Chem 7: 04/14/19 07:26 04/14/19 07:26 - ABG Interpretation ABG results: PT/INR, D-dimer PT 12.7 Seconds (9.4-12.1) H 04/12/19 16:11 364 ng/mLFEU (0-500) 04/12/19 16:11 - Impressions Impressions Echocardiogram 04/13/19 18:53 Impressions: LVEF 65%. Mild concentric left ventricular hypertrophy. Mild left ventricular diastolic dysfunction. Normal right ventricular structure and function. Moderate tricuspid regurgitation. No evidence of pulmonary hypertension. Left Ventricular Wall Motion: Rest Echo Findings All wall segments showed normal motion. Findings: Study Quality * Technically adequate exam. ECG Findings * Normal sinus rhythm. Left Ventricle * LVEF 65%. * Mild concentric left ventricular hypertrophy. * Normal LV chamber size. * Mild left ventricular diastolic dysfunction. Right Ventricle * Normal right ventricular structure and function. Left Atrium * Normal left atrial size. Right Atrium * Normal right atrial size. Aortic Valve * Aortic valve not well visualized. * No aortic regurgitation. * No aortic stenosis. Mitral Valve * Normal mitral valve structure. * No mitral regurgitation. * No mitral stenosis. Tricuspid Valve * Moderate tricuspid regurgitation. * Normal tricuspid valve structure. * No tricuspid stenosis. * No evidence of pulmonary hypertension. Pulmonic Valve * Pulmonic valve not well visualized. Aorta * Normally sized aortic root. Pericardium * The pericardium appears normal. IVC * Normal IVC dimensions and inspiratory collapse. Pulmonary Artery * Pulmonary artery not well visualized. Consult Discharge Plan - Plan Referrals: Yanet Vazquez, COAT PADDER [Primary Care Provider] - Prescriptions: Vancomycin Oral Soln [Firvanq] 125 mg PO QID #100 ml Nitrofurantoin (BID) [Macrobid] 100 mg PO BIDWM #10 capsule (1) Chest pain Qualifiers: Chest pain type: unspecified Qualified Code(s): R07.9 - Chest pain, uns pecified (2) Abdominal pain Qualifiers: Abdominal location: generalized Qualified Code(s): R10.84 - Generalized abdominal pain (3) Urinary tract infection Qualifiers: Urinary tract infection type: acute cystitis Hematuria presence: with hematuria Qualified Code(s): N30.01 - Acute cystitis with hematuria (4) Hypothyroidism Qualifiers: Hypothyroidism type: unspecified Qualified Code(s): E03.9 - Hypothyroidism, unspecified
[2019-04-14 08:07] LABS: Basophils % 0.3 %; Eosinophils # 0.2 K/mcL (0.0-0.6); Eosinophils % 3.2 %; Hematocrit 43.3 % (35.3-44.9); Hemoglobin 14.6 g/dL (11.5-15.4); Immature Granulocytes % 0.7 % (0-4); Lymphocytes # 1.4 K/mcL (0.6-4.6); Lymphocytes % 24.2 %; Mean Corpuscular HGB Conc 33.7 g/dL (31.6-35.5); Mean Corpuscular Hemoglobin 30.9 pg (28.0-33.3); Mean Corpuscular Volume 91.7 fL (83.0-100.0); Mean Platelet Volume 8.8 fL (9.4-12.4); Monocytes # 0.6 K/mcL (0.0-1.3); Monocytes % 9.5 %; Neutrophils # 3.7 K/mcL (1.6-8.9); Platelet Count 221 K/mcL (140-400); Red Blood Count 4.72 M/mcL (3.82-4.97); Red Cell Distribution Width 12.9 % (11.5-14.5); Segmented Neutrophils % 62.1 %; White Blood Count 5.9 K/mcL (4.3-11.1)
[2019-04-14 08:29] LABS: BUN/Creatinine Ratio 16 (6-26); Blood Urea Nitrogen 16 mg/dL (6-20); Calcium 9.6 mg/dL (8.6-10.3); Carbon Dioxide 29 mEq/L (23-29); Chloride 102 mEq/L (98-107); Glucose 100 mg/dL (70-105); Magnesium 1.9 mg/dL (1.6-2.6); Osmolality,Calculated 287 (280-300); Phosphorous 3.9 mg/dL (2.7-4.5); Potassium 3.7 mEq/L (3.5-5.1); Sodium 138 mEq/L (136-145); eGFR For African Americans > 60 (> 60); eGFR For Non-African Americans 59 (> 60)
[2019-04-14] MEDS: Nitrofurantoin (BID) 100 MG CAPSULE PO SCH ×2 (08:34→15:40)
[2019-04-14 08:41] LABS: Thyroid Stimulating Hormone 3.911 mcIU/mL (0.340-5.600)
[2019-04-14 15:07] VITALS: BP 100/66
[2019-04-14 15:17] LABS: Adenovirus F 40/41 PCR Not detected (Not detect); Astrovirus PCR Not detected (Not detect); Campylobacter by PCR Not detected (Not detect); Cryptosporidium by PCR Not detected (Not detect); Cyclospora cayetanensis PCR Not detected (Not detect); E. coli O157 by PCR Not detected (Not detect); Entamoeba histolytica PCR Not detected (Not detect); Enteroaggregative E.coli(EAEC) Not detected (Not detect); Enteropathogenic E.coli(EPEC) Not detected (Not detect); Enterotoxigenic E.coli (ETEC) Not detected (Not detect); Giardia lamblia PCR Not detected (Not detect); Norovirus GI/GII PCR Not detected (Not detect); Plesiomonas shigelloides PCR Not detected (Not detect); Rotavirus A PCR Not detected (Not detect); Salmonella PCR Not detected (Not detect); Sapovirus PCR Not detected (Not detect); Shig/EnteroinvasiveE coli EIEC Not detected (Not detect); Shigalike tox-prod E coli STEC Not detected (Not detect); Vibrio PCR Not detected (Not detect); Vibrio cholerae PCR Not detected (Not detect); Yersinia enterocolitica PCR Not detected (Not detect)
[2019-04-14 15:19] LABS: C.difficile Toxin A/B Gene PCR DETECTED (Not detect)
--- NOTE | 2019-04-14 15:35 | Discharge Summary ---
Orders not resulted at time of discharge: Pending orders 04/12/19 15:43 ECG 12 lead ECG [ECG] Stat 04/12/19 18:56 NM suzanne perf SPECT multi [NM] Routine Date of Encounter: 04/14/19 Time of Encounter: 15:32 - Discharge Diagnosis (1) Chest pain Priority: Primary Status: Acute Qualifiers: Chest pain type: unspecified Qualified Code(s): R07.9 - Chest pain, unspecified (2) Abdominal pain Priority: Secondary Status: Acute Qualifiers: Abdominal location: generalized Qualified Code(s): R10.84 - Generalized abdominal pain (3) Hiatal hernia Priority: Secondary Status: Acute (4) DVT prophylaxis Priority: Secondary Status: Acute (5) Clostridium difficile infection Priority: Secondary Status: Acute Hospital course: Patient is a 62-year-old female with a past medical history of hiatal hernia, urolithiasis presented to the ED for evaluation of chest and abdominal pain. Symptoms started 2 months ago and started on initially as a substernal sharp stabbing pain constant with no alleviating or relieving factors. No fevers, nausea, dyspnea, or urinary symptoms. Has loose stools but this is chronic for her. She states she had a urine performed by her PCP that did show blood, and she took 7 day course of Bactrim and she says this did not help at all. Her family doctor has been doing on-going workup for chest pain in the next at this referral to a rug scratcher to be evaluated for fibromyalgia. Not on OCP, no tobacco use, no recent travels, no early deaths in family from cardiac causes. In the ED, an EKG showed ST depressions not present on an EKG 6 years ago, troponin negative, D-Dimer negative, CBC/BMP unremarkable. CT abdomen/pelvis unremarkable. Chest x-ray unremarkable. She will need to have to have continued workup. She was treated for a UTI with macrobid since Bactrim prior to admission was ineffective, she still had symptoms and fever. During the hospitalization she had loose bowel movements and tested positive for C diff. She is hemodynamically stable and does not appear dehydrated. She was admitted for further workup. She underwent a stress test that was negative for ischemia. Patient has atypical chest pain, likely musculoskelatal in nature. She will be discharged with prescription with macrobid and PO Vancomycin - Time Spent with Patient Total time spent providing and/or coordinating discharge services: Time spent: Less than 30 minutes - Discharge Medications Prescriptions: New Vancomycin Oral Soln [Firvanq] 125 mg PO QID #100 ml Nitrofurantoin (BID) [Macrobid] 100 mg PO BIDWM #10 capsule Continued Tramadol HCl [Ultram] 50 mg PO Q6H PRN PRN Reason: Pain Levothyroxine [Synthroid] 100 mcg PO 0630 Ergocalciferol (VITAMIN D2) [Vitamin D2] 50,000 unit PO TH Cyanocobalamin (B-12) [Vitamin B12] 1,000 mcg IM TH Pantoprazole Sodium 40 mg PO DAILY Home Medications: Cyanocobalamin (B-12) [Vitamin B12] 1,000 mcg IM TH 04/13/19 [History] Ergocalciferol (VITAMIN D2) [Vitamin D2] 50,000 unit PO TH 04/13/19 [History] Levothyroxine [Synthroid] 100 mcg PO 0630 04/13/19 [History] Tramadol HCl [Ultram] 50 mg PO Q6H PRN 04/13/19 [History] Nitrofurantoin (BID) [Macrobid] 100 mg PO BIDWM #10 capsule 04/14/19 [Rx] Pantoprazole Sodium 40 mg PO DAILY 04/14/19 [History] Vancomycin Oral Soln [Firvanq] 125 mg PO QID #100 ml 04/14/19 [Rx] Allergies/Adverse Reactions: Allergy/AdvReac Type Severity Reaction Status Date / Time codeine AdvReac Nausea Verified 04/14/19 12:19 Date of admission: 04/12/19 20:06 Primary care physician: Yanet Vazquez Discharging clinician: Ruthie Dennison - Constitutional Vitals: Temp Pulse Resp BP Pulse Ox 98.3 F 77 16 100/66 94 04/14/19 15:04 04/14/19 15:04 04/14/19 15:04 04/14/19 15:04 04/14/19 15:04 General appearance: Present: A&O X 3, morbidly obese Exam: . - Head Head exam: Present: atraumatic, normocephalic - Eye Eye exam: Present: PERRL, conjuntiva pink, sclera anicteric Pupils: Present: PERRL - Neck Neck exam general surgery: Present: supple, trachea midline. Absent: lymphadenopathy - Respiratory Respiratory exam: Present: CTAB. Absent: accessory muscle use, rales, rhonchi, wheezes - Cardiovascular Cardiovascular exam: Present: RRR, +S1, +S2. Absent: diastolic murmur, gallop, rubs, systolic murmur - GI/Abdominal GI/Abdominal exam: Present: normal bowel sounds, soft, no peritoneal signs. Absent: distended, tenderness - Extremities Exam Extremities exam: Present: warm, radial pulses palpable and symmetrical. Absent: calf tenderness, cyanotic, pedal edema - Neurological Exam Neurological exam: Present: CN II-XII intact, oriented X3, no focal deficits. Absent: pronater drift, facial droop, speech deficit - Skin Skin exam: Present: dry, intact - Patient Status Disposition: Home, Self-Care Condition: Good Functional capacity at discharge: independent ambulation Overall status at discharge: patient is back to baseline - Discharge Instructions Follow Up With: Yanet Vazquez, RESOURCE EFFICIENCY MANAGER [Primary Care Provider] - - Diet and Activity Activity: return to school once cleared by your PCP/specialist Diet: advance to your usual diet
[2019-04-14] MEDS: Acetaminophen 325 MG TABLET PO PRN (15:39)
--- NOTE | 2019-04-15 20:30 | Electrocardiograph Report ---
[address] [id number] Test Date: 2019-04-12 Pat Name: Kira Rodriguez Department: 104 Room: 3B12 Gender: F Director Of Distance Learning: Msc : 1960 Requested By: Laurent Camejo Order Number: [id number] Reading MD: Ro Quijano Measurements Intervals [place] Rate: 98 P: 64 TN: 140 QRS: 26 QRSD: 82 T: 47 QT: 340 QTc: 396 Interpretive Statements SINUS RHYTHM NONSPECIFIC ST & T-WAVE ABNORMALITY Electronically Signed On 04-15-2019 20:28:56 EDT by Ro Quijano
== END 2019-04-14 17:12 | disposition home or self-care (01) ==
LOC: EMEROOARM 15:09 → 3BNU 15:09 → SUATTDRO 20:06 → 3BNU 20:58
PROVIDERS: ADMIT Internal Medicine Nephrology; ATTEND Student in an Organized Health Care Education/Training Program